=== PATIENT | female | born 1985 | race Caucasian/White ===

== ENCOUNTER 2018-11-04 11:01 | Day surgery (SDC) | payer BC ==
[~2018-11-04 11:01] MED LIST: CEFAZOLIN 2 GM/50 ML (PMX) 50 ML IVPB
[2018-11-04] MEDS ORDERED: MIDAZOLAM 1 MG/ML 2 ML INJ (13:51)
[2018-11-04] MEDS ORDERED: PROPOFOL 20 ML (13:51)
[2018-11-04] MEDS ORDERED: CEFAZOLIN 1 GM INJ (13:51)
[2018-11-04] MEDS ORDERED: KETOROLAC 30 MG INJ (13:52)
[2018-11-04] MEDS ORDERED: ONDANSETRON 4 MG INJ (13:52)
[2018-11-04] MEDS ORDERED: GELATIN SIZE 100 SPONGE (15:06)
[2018-11-04] MEDS: BUPIVACAINE 0.25%/EPI (SDV) 30 ML INJ ×2 (15:26)
[2018-11-04] MEDS ORDERED: FENTAnyl 50 MCG/ML VIAL IV (15:30)
[2018-11-04] MEDS ORDERED: LACTATED RINGER'S 1,000 ML IV (15:41)
[2018-11-04] MEDS: HYDROmorphONE 1 MG/5 ML IV SYRINGE IV (15:58)
[2018-11-04] MEDS ORDERED: IBUPROFEN 600 MG TAB PO (16:00)
[2018-11-04] MEDS ORDERED: morphine 2 MG INJ IV (16:00)
[2018-11-04] MEDS ORDERED: HYDROCODONE/APAP (5/325) TAB PO ×2 (16:00)
[2018-11-04] MEDS ORDERED: ONDANSETRON 4 MG INJ IV (16:00)
[2018-11-04] MEDS: ONDANSETRON 4 MG INJ IV (16:01)
[2018-11-04] MEDS ORDERED: DIPHENHYDRAMINE 50 MG INJ (16:57)
[2018-11-04] MEDS: DIPHENHYDRAMINE 50 MG INJ IV (17:04)
== END 2018-11-04 18:55 | disposition home or self-care (01) ==
LOC: SDS 11:01
DX: K64.1 Second degree hemorrhoids (principal); K64.2 Third degree hemorrhoids; K64.9 Unspecified hemorrhoids; F17.210 Nicotine dependence, cigarettes, uncomplicated
CPT/HCPCS: 45505; 76801; 76817; 84702; 84703